=== PATIENT | female | born 1935 | race Hispanic/Latino ===

== ENCOUNTER 2018-12-31 10:44 | Outpatient (CLI) | payer MEDICARE, BC | END 2018-12-31 10:45 | disposition home or self-care (01) | LOC: RAD 10:44 ==

== ENCOUNTER 2019-01-02 11:40 | Emergency (ER) | payer MEDICARE, BC ==
[2019-01-02 11:41] VITALS: BMI 17.6
[2019-01-02] MEDS ORDERED: Sodium Chloride 0.9% 1,000 ML IV STA (12:17)
--- NOTE | 2019-01-02 12:26 | ED PDOC ---
Arrival/HPI - General Chief Complaint: GI Problem Time Seen by Provider: 01/02/19 11:46 Historian: Patient - History of Present Illness Narrative History of Present Illness (Text): 01/02/19 12:05 83 year old female, whose past medical history includes GERD, presents complaining of nausea and vomiting over the past couple of days. Patient is vomiting food, but now is vomiting clear liquid with occasional bile. Patient was put on medication for gastritis by PMD which helped. Patient denies any recent travel or sick contact. Patient denies any fever, chills, chest pain, shortness of breath, abdominal pain, urinary symptoms, back pain, neck pain, headache, dizziness, or any other complaints. PMD: Dr. Yesenia Lei Time/Duration: Other (past couple days) Symptom Onset: Gradual Symptom Course: Unchanged Activities at Onset: Light Context: Home Past Medical History - Provider Review Nursing Documentation Reviewed: Yes - Tetanus Immunization Tetanus Immunization: Up to Date - Cardiac Hx Cardiac Disorders: Yes - Psychiatric Hx Psychophysiologic Disorder: No Hx Substance Use: No Family/Social History - Physician Review Nursing Documentation Reviewed: Yes Family/Social History: No Known Family HX Smoking Status: Former Smoker Hx Alcohol Use: Yes Hx Substance Use: No Allergies/Home Meds Allergies/Adverse Reactions: Allergies codeine Allergy (Verified 01/02/19 11:46) RASH shrimp Allergy (Verified 01/02/19 11:46) PAIN Home Medications: Home Meds Medication Instructions Recorded Confirmed Albuterol Sulfate [Proair 1 - 2 puff PO BID PRN 01/02/19 01/02/19 Respiclick] Azithromycin 500mg/250ML NS 250 mg PO DAILY 01/02/19 01/02/19 [Zithromax 500mg in NS Addvantage] Fluticasone/Umeclidin/Vilanter 1 puff PO DAILY 01/02/19 01/02/19 [Trelegy Ellipta 100-62.5-25] Imipramine HCl 1 tab PO HS 01/02/19 01/02/19 Lansoprazole 1 cap PO DAILY 01/02/19 01/02/19 Rosuvastatin Calcium [Crestor] 5 mg PO HS 01/02/19 01/02/19 Review of Systems - Physician Review All systems were reviewed & negative as marked: Yes - Review of Systems Constitutional: absent: Fevers, Other (chills) Respiratory: absent: SOB Cardiovascular: absent: Chest Pain Gastrointestinal: Nausea, Vomiting. absent: Abdominal Pain, Diarrhea Genitourinary Female: absent: Dysuria, Frequency, Hematuria Musculoskeletal: absent: Back Pain, Neck Pain Neurological: absent: Headache, Dizziness Physical Exam Vital Signs Reviewed: Yes Vital Signs Temp Pulse Resp BP Pulse Ox 01/02/19 11:41 97.5 F L 102 H 17 148/60 100 Temperature: Afebrile Blood Pressure: Normal Pulse: Tachycardic Respiratory Rate: Normal Appearance: Positive for: Well-Appearing, Non-Toxic, Comfortable, Other (thin) Pain Distress: None Mental Status: Positive for: Alert and Oriented X 3 - Systems Exam Head: Present: Atraumatic, Normocephalic Pupils: Present: PERRL Extroacular Muscles: Present: EOMI Conjunctiva: Present: Normal Mouth: Present: Moist Mucous Membranes Neck: Present: Normal Range of Motion Respiratory/Chest: Present: Clear to Auscultation, Good Air Exchange. No: Respiratory Distress, Accessory Muscle Use Cardiovascular: Present: Regular Rate and Rhythm, Normal S1, S2. No: Murmurs Abdomen: No: Tenderness, Distention, Peritoneal Signs Back: Present: Normal Inspection Upper Extremity: Present: Normal Inspection. No: Cyanosis, Edema Lower Extremity: Present: Normal Inspection. No: Edema Neurological: Present: GCS=15, Speech Normal Skin: Present: Warm, Dry, Normal Color. No: Rashes Psychiatric: Present: Alert, Oriented x 3, Normal Insight, Normal Concentration Medical Decision Making ED Course and Treatment: 01/02/19 12:15 Impression: 83 year old female presents complaining of nausea and vomiting for the past couple of days. Plan: -- CT abd pelvis PO & IV COntrast -- Labs -- Pepcid, IV fluids, Zofran inj -- Urine Culture -- Urinalysis -- Reassess and disposition Progress Notes: PROCEDURE: CT Abdomen and Pelvis with contrast Dictator : Stephen Rojas MD Report Date : 01/02/2019 15:43:25 IMPRESSION: Multiple gallstones are seen including a 6 mm stone in the neck of the gallbladder. There is mild mural thickening of the gallbladder wall. There is no obvious pericholecystic fluid. Clinical correlation is suggested regarding possible cholecystitis. - Lab Interpretations I have reviewed the lab results: Yes - RAD Interpretation Radiology Orders: 01/02/19 12:17 ABD PELVIS PO & IV CONTRAST [CT] Stat Supervisor Data Processing: Radiologist - Medication Orders Current Medication Orders: Sodium Chloride (Sodium Chloride 0.9%) 1,000 mls @ 150 mls/hr IV .[id number] STA Stop: 01/02/19 18:56 Discontinued Medications Famotidine (Pepcid) 20 mg IVP STAT STA Stop: 01/02/19 12:18 Ondansetron HCl (Zofran Inj) 4 mg IVP STAT STA Stop: 01/02/19 12:18 - Scribe Statement The provider has reviewed the documentation as recorded by the Maryibradha Nicole Provider Scribe Attestation: All medical record entries made by the Scribe were at my direction and personally dictated by me. I have reviewed the chart and agree that the record accurately reflects my personal performance of the history, physical exam, medical decision making, and the department course for this patient. I have also personally directed, reviewed, and agree with the discharge instructions and disposition. Disposition/Present on Arrival - Present on Arrival Any Indicators Present on Arrival: No History of DVT/PE: No History of Uncontrolled Diabetes: No Urinary Catheter: No History of Decub. Ulcer: No History Surgical Site Infection Following: None - Disposition Have Diagnosis and Disposition been Completed?: Yes Diagnosis: Gall stones Disposition: HOME/ ROUTINE Disposition Time: 17:00 Condition: GOOD Discharge Instructions (ExitCare): Gallstones (DC) Additional Instructions: DOMONIQUE GOLD, thank you for letting us take care of you today. The emergency medical care you received today was directed at your acute symptoms. If you were prescribed any medication, please fill it and take as directed. It may take several days for your symptoms to resolve. Return to the Emergency Department if your symptoms worsen, do not improve, or if you have any other problems. Please contact your doctor or call one of the physicians/clinics you have been referred to that are listed on the Patient Visit Information form that is included in your discharge packet. Bring any paperwork you were given at discharge with you along with any medications you are taking to your follow up visit. Our treatment cannot replace ongoing medical care by a primary care provider outside of the emergency department. Thank you for allowing the [facility] team to be part of your care today. Follow up with Dr. Lei this week for re-evaluation and further management. Prescriptions: Famotidine [Pepcid] 20 mg PO BID #20 tab Ondansetron ODT [Zofran ODT] 4 mg PO Q8 PRN #15 odt PRN Reason: Nausea/Vomiting Referrals: Caroline Lei MD [Primary Care Provider] - Follow up with primary Forms: [employer] (Polish)
[2019-01-02 12:38] LABS: EOS # 0.1 (0.0-0.7); EOS % 0.7 % (1.5-5.0); LYMPH # 1.4 (1.2-3.4); LYMPH % 19.1 % (22.0-35.0); MEAN CELL VOLUME 88.5 fl (80.0-105.0); MEAN CORPUSCULAR HEMOGLOBIN 29.2 pg (25.0-35.0); MEAN PLATELET VOLUME 9.7 fl (7.0-11.0); MONO # 0.6 (0.1-0.6); MONO % 8.8 % (1.0-6.0); RBC 5.14 10^6/uL (3.5-6.1); RED CELL DISTRIBUTION WIDTH 13.7 % (11.5-14.5); WHITE BLOOD COUNT 7.1 10^3/uL (4.5-11.0)
[2019-01-02 13:12] LABS: ALB/GLOB RATIO 1.3 (1.1-1.8); ALBUMIN 4.2 g/dL (3.0-4.8); ALT/SGPT 31 U/L (7-56); AST/SGOT 30 U/L (14-36); BLOOD UREA NITROGEN 15 mg/dL (7-21); GFR NON-AFRICAN AMERICAN > 60; LIPASE 104 U/L (23-300)
[2019-01-02 13:38] LABS: FREE T4 1.25 ng/dL (0.78-2.19)
[2019-01-02 13:52] LABS: T3 1.15 ng/mL (0.97-1.69)
[2019-01-02 13:56] LABS: TROPONIN I 0.01 ng/mL
[2019-01-02 14:07] LABS: PH,URINE 6.5 (4.7-8.0); URINE BILIRUBIN NEGATIVE (NEGATIVE); URINE BLOOD NEGATIVE (NEGATIVE); URINE GLUCOSE (UA) NEGATIVE (NEGATIVE); URINE LEUKOCYTE ESTERASE NEGATIVE Leu/uL (NEGATIVE); URINE PROTEIN NEGATIVE mg/dL (<30 mg/dL); URINE UROBILINOGEN 0.2 E.U./dL (<1 E.U./dL)
[2019-01-02 14:10] LABS: URINE APPEARANCE CLEAR (CLEAR); URINE COLOR YELLOW (YELLOW)
[2019-01-02] MEDS ORDERED: Iohexol 350 MG/100 ML VIAL ONE (15:00)
[2019-01-02 15:07] VITALS: RESP 18
--- NOTE | 2019-01-02 15:47 | CT ---
Date of service: 01/02/2019 PROCEDURE: CT Abdomen and Pelvis with contrast HISTORY: diffuse abd. pain with vomiting COMPARISON: None. TECHNIQUE: Contrast dose: 100 cc of Omni 350 Radiation dose: Total exam DLP = 202.61 mGy-cm. This CT exam was performed using one or more of the following dose reduction techniques: Automated exposure control, adjustment of the mA and/or kV according to patient size, and/or use of iterative reconstruction technique. FINDINGS: LOWER THORAX: Unremarkable. LIVER: Unremarkable. No gross lesion or ductal dilatation. GALLBLADDER AND BILE DUCTS: Multiple gallstones are seen including a 6 mm stone in the neck of the gallbladder. There is mild mural thickening of the gallbladder wall. There is no obvious pericholecystic fluid. Clinical correlation is suggested regarding possible cholecystitis. PANCREAS: Unremarkable. No gross lesion or ductal dilatation. SPLEEN: Unremarkable. ADRENALS: Unremarkable. No mass. KIDNEYS AND URETERS: Unremarkable. No hydronephrosis. No solid mass. VASCULATURE: Unremarkable. No aortic aneurysm. No aortic atherosclerotic calcification or mural plaque present. BOWEL: Unremarkable. No obstruction. No gross mural thickening. APPENDIX: Normal appendix. PERITONEUM: Unremarkable. No free fluid. No free air. LYMPH NODES: Unremarkable. No enlarged lymph nodes. BLADDER: Unremarkable. REPRODUCTIVE: Unremarkable. BONES: Disc degeneration a multiple levels OTHER FINDINGS: None. IMPRESSION: Multiple gallstones are seen including a 6 mm stone in the neck of the gallbladder. There is mild mural thickening of the gallbladder wall. There is no obvious pericholecystic fluid. Clinical correlation is suggested regarding possible cholecystitis.
[2019-01-02 16:56] VITALS: TEMP 98
--- NOTE | 2019-01-02 17:25 | US ---
Date of service: 01/02/2019 HISTORY: multiple gallstones seen on CT today COMPARISON: None. TECHNIQUE: Sonographic evaluation of the abdomen. FINDINGS: LIVER: Measures 12.1 cm. Normal echogenicity of the liver parenchyma. There is a hyperechoic lesion in the gallbladder fossa measuring 1.3 x 2.15 cm. There is a 2nd round hyperechoic lesion in the right lobe measuring 1 cm in diameter. Probable hemangiomas. There is a cyst in the right lobe measuring 1 x 1.5 cm. GALLBLADDER: Multiple stones and sludge can be seen in the gallbladder. There is no pericholecystic fluid. The wall is 2 mm in thickness. COMMON BILE DUCT: Measures 4 mm. No stones. No dilatation. PANCREAS: Unremarkable as visualized. No mass. No ductal dilatation. RIGHT KIDNEY: Measures 9.6 x 3.7 x 6.1cm. Mild hydronephrosis LEFT KIDNEY: Measures 9.1 x 3.7 x 5.7cm. Normal echogenicity. No calculus, mass, or hydronephrosis. SPLEEN: Normal in size and contour. No mass. 9.1 x 3.3 x 3.6 cm AORTA: No aneurysmal dilatation. IVC: Unremarkable. OTHER FINDINGS: None. IMPRESSION: Multiple stones and sludge can be seen in the gallbladder. There is no pericholecystic fluid. The wall is 2 mm in thickness. There is a hyperechoic lesion in the gallbladder fossa measuring 1.3 x 2.15 cm. There is a 2nd round hyperechoic lesion in the right lobe measuring 1 cm in diameter. Probable hemangiomas. There is a cyst in the right lobe measuring 1 x 1.5 cm
[2019-01-02 18:00] VITALS: BP 131/72; PULSE 75; O2SAT 99
--- NOTE | 2019-01-03 09:22 | CARD ---
APPROVED REPORT Date of service: 01/02/2019 EKG Measurement Heart [id number] CO [id number] <Conclusion> Normal sinus rhythm Biatrial enlargement Abnormal ECG
== END 2019-01-02 17:58 | disposition home or self-care (01) ==
LOC: ED 11:40
DX: K80.80 Other cholelithiasis without obstruction (principal); K21.9 Gastro-esophageal reflux disease without esophagitis
CPT/HCPCS: 74177; 76700; 80053; 81003; 82550; 83615; 83690; 83735; 84439; 84443; 84480; 84484; 85025; 87086; 93005; 96374; 96375; 99285; J2405; J7030; Q9967